=== PATIENT | male | born 1990 | race Caucasian/White ===

== ENCOUNTER 2018-02-26 21:51 | Emergency (ER) | payer OTHER ==
[2018-02-26 22:00] VITALS: RESP 18
--- NOTE | 2018-02-26 23:08 | XR ---
EXAMINATION TYPE: XR knee complete LT DATE OF EXAM: 02/26/2018 COMPARISON: NONE HISTORY: Knee pain TECHNIQUE: 3 views FINDINGS: I see no fracture nor dislocation. Joint spaces are normal. There is no sign of knee joint effusion. IMPRESSION: Negative left knee exam.
[2018-02-26] MEDS ORDERED: ACET/COD 300 MG/30 MG STARTER PACK 6 TAB BTL PO STA (23:39)
--- NOTE | 2018-02-26 23:42 | ED ---
Lower Extremity Injury HPI - General Chief Complaint: Extremity Injury, Lower Stated Complaint: Knee Pain Time Seen by Provider: 02/26/18 23:19 Source: patient Mode of arrival: ambulatory Limitations: no limitations - History of Present Illness Initial Comments: 27-year-old male patient presents emergency department today for evaluation of left knee pain. Patient states that he is camping currently. Patient states that his shorts became stuck on a camping chair and caused him to twist his knee. Patient states he feels like the kneecap dislocated and went back to place. Patient states he has done this once in the past in high school. Patient states that he is able to ambulate although he is using a cane. States he is having pain to the anterior knee just below the patella. He denies any numbness or tingling to the leg. Denies any fall related to the injury. Denies any pain to the posterior knee. Patient denies any headache, neck pain, back pain, chest pain, shortness of breath, dizziness, weakness, abdominal pain , nausea, vomiting, or difficulties with bowel movements or urination. - Related Data Home Medications Medication Instructions Recorded Confirmed Dextroamphetamine/Amphetamine 10 mg PO QAM 02/26/18 02/26/18 [Adderall Xr] Dextroamphetamine/Amphetamine 30 mg PO QAM 02/26/18 02/26/18 [Adderall Xr] Ibuprofen [Motrin Ib] 800 mg PO TID PRN 02/26/18 02/26/18 Melatonin 5 mg PO HS 02/26/18 02/26/18 Multivitamins, Thera [Multivitamin 1 tab PO DAILY 02/26/18 02/26/18 (formulary)] Allergies Allergy/AdvReac Type Severity Reaction Status Date / Time Penicillins Allergy Unknown Verified 02/26/18 23:08 Childhood Review of Systems ROS Statement: Those systems with pertinent positive or pertinent negative responses have been documented in the HPI. ROS Other: All systems not noted in ROS Statement are negative. Past Medical History Past Medical History: No Reported History History of Any Multi-Drug Resistant Organisms: None Reported Past Surgical History: Tonsillectomy Past Psychological History: ADD/ADHD, Depression Smoking Status: Never smoker Past Alcohol Use History: None Reported Past Drug Use History: None Reported General Exam Limitations: no limitations General appearance: alert, in no apparent distress, other (This is a well- developed, well-nourished adult male patient in no acute distress. Vital signs upon presentation are temperature 98.2F, pulse 95, respirations 18, blood pressure 120/70, pulse ox 97% on room air.) Eye exam: Present: normal appearance, PERRL, EOMI. Absent: scleral icterus, conjunctival injection, periorbital swelling ENT exam: Present: normal exam, normal oropharynx, mucous membranes moist Respiratory exam: Present: normal lung sounds bilaterally. Absent: respiratory distress, wheezes, rales, rhonchi, stridor Cardiovascular Exam: Present: regular rate, normal rhythm, normal heart sounds. Absent: systolic murmur, diastolic murmur, rubs, gallop, clicks Extremities exam: Present: full ROM, tenderness (Tenderness over the left anterior knee), normal capillary refill, other (Mild left knee swelling. Skin is otherwise pink, warm, and dry. Cap refills less than 3 seconds. Pedal pulses are 2+ and equal bilaterally. Patient has no pain with valgus or varus maneuvers. Joint appears stable. Negative Alexia.). Absent: normal inspection, pedal edema, joint swelling, calf tenderness Neurological exam: Present: alert, oriented X3, CN II-XII intact Psychiatric exam: Present: normal affect, normal mood Skin exam: Present: warm, dry, intact, normal color. Absent: rash Course Vital Signs 02/26/18 02/26/18 02/26/18 21:58 23:11 23:58 Temperature 98.2 F 98.7 F Pulse Rate 95 91 71 Respiratory 18 18 18 Rate Blood Pressure 120/70 122/68 127/86 O2 Sat by Pulse 97 98 99 Oximetry Medical Decision Making - Medical Decision Making 27-year-old male patient presents to the emergency department today for evaluation of left knee injury. Patient states he believes his patella dislocated and went back to place. He is having pain to the left anterior knee just below the patella. Physical examination does reveal some mild knee swelling. No pain with valgus or varus maneuvers. X-ray is negative for any acute fracture, dislocation, or effusion. Patient will be placed in a knee immobilizer and instructed to follow-up with orthopedics for further evaluation. Return parameters were discussed in detail. He verbalizes understanding and agrees with this plan. - Radiology Data Radiology results: report reviewed, image reviewed 3 views of the left knee are obtained. There is no fracture nor dislocation noted. Joint spaces are normal. There is no sign of any joint effusion. Impression by Dr. Avitia shows negative left knee exam. Disposition Clinical Impression: Dislocation of left patella, Internal derangement of left knee Disposition: HOME SELF-CARE Condition: Good Instructions: Knee Pain (ED), Knee Immobilizer (ED) Additional Instructions: Use knee immobilizer when ambulatory. When resting open immobilizer and apply ice to the painful joints. Take medication as directed. Use Tylenol 3 when the pain is severe. Take ibuprofen at all other times. Follow-up with orthopedics for recheck as soon as possible. Return here or present to the nearest emergency department for any new, worsening, or concerning symptoms. Is patient prescribed a controlled substance at d/c from ED?: No Referrals: None,Stated [Primary Care Provider] - 1-2 days Time of Disposition: 23:42
[2018-02-26] MEDS ORDERED: traMADol 50 MG STARTER PACK 3 TAB BTL PO STA (23:51)
[2018-02-27 00:52] VITALS: BP 127/86; PULSE 71; TEMP 98.7
== END 2018-02-26 23:59 | disposition home or self-care (01) ==
LOC: EC 21:51
DX: M22.3X2 Other derangements of patella, left knee (principal); M79.89 Other specified soft tissue disorders; F90.9 Attention-deficit hyperactivity disorder, unspecified type; Z79.899 Other long term (current) drug therapy; Z88.0 Allergy status to penicillin; W18.09XA Striking against other object with subsequent fall, initial encounter; Y93.89 Activity, other specified; Y92.833 Campsite as the place of occurrence of the external cause
CPT/HCPCS: 99283